=== PATIENT | female | born 1965 | race Caucasian/White ===

== ENCOUNTER → 2017-02-26 | Day surgery (SDC) | payer OTHER ==
[2017-02-26 08:47] LABS: HCT 40.3 % (37.0-47.0); HGB 13.7 g/dl (12.5-16.0); MCH 29.1 pg (25.0-31.0); MCV 85.6 fL (78.0-100.0); MPV 9.8 fL (6.0-9.5); RBC 4.71 M/uL (4.20-5.40); RDW 12.7 % (11.5-14.0); WBC 6.5 K/uL (4.0-10.5)
[2017-02-26 09:13] LABS: ALBUMIN 4.7 g/dL (3.5-5.0); BILIRUBIN - TOTAL 0.7 mg/dL (0.1-1.0); CREATININE 0.8 mg/dL (0.5-1.0); GLOBULIN (CALCULATION) 2.5 g/dL (2.2-4.2); POTASSIUM 4.1 mmol/L (3.5-5.1); TOTAL PROTEIN 7.2 g/dL (6.4-8.3)
== END | disposition home or self-care (01) ==
LOC: FAS 08:24
PROVIDERS: Surgery
DX: Z12.11 Encounter for screening for malignant neoplasm of colon (principal); K64.8 Other hemorrhoids; K58.9 Irritable bowel syndrome, unspecified; Z90.49 Acquired absence of other specified parts of digestive tract; Z87.891 Personal history of nicotine dependence; Z80.3 Family history of malignant neoplasm of breast; Z98.890 Other specified postprocedural states
CPT/HCPCS: 36415; 80053; 88305; J1100; J2704